=== PATIENT | male | born 1970 | race Caucasian/White ===

== ENCOUNTER 2020-12-12 11:57 | Emergency (ER) | payer OTHER ==
--- NOTE | 2020-12-12 12:36 | EDM.PDOC ---
ED HPI GENERAL MEDICAL PROBLEM - General Chief Complaint: Chest Pain Stated Complaint: SOB CHEST PAIN Time Seen by Provider: 12/12/20 12:15 Source of Information: Reports: Patient History Limitations: Reports: No Limitations - History of Present Illness INITIAL COMMENTS - FREE TEXT/NARRATIVE: 50-year-old male, who admits to being very sedentary over the past few months has noticed for the past 3 weeks increased shortness of breath with activity. No chest pain. The last 2 days he has noticed a deep pain in his left shoulder and some slight tingling in his hands and has become very anxious about it, called his primary provider at home and he recommended he come into the emergency room. He had no significant symptoms on arrival. An EKG done shows normal sinus rhythm. Denies any cough, abdominal pain, nausea or vomiting, diaphoresis, or peripheral edema. No family history of heart disease or previous heart problems or tests. He is very anxious. Onset: Gradual Duration: Week(s): (3 weeks of symptoms) Location: Reports: Chest (Slight chest pressure intermittent) Worsens with: Reports: Other (Shortness of breath seems to be worse with activity) Associated Symptoms: Reports: Chest Pain, Malaise, Shortness of Breath. Denies: Diaphoresis, Fever/Chills, Nausea/Vomiting, Weakness Chest Pain Score (Numeric/FACES): 2 - Related Data Allergies Allergy/AdvReac Type Severity Reaction Status Date / Time No Known Allergies Allergy Verified 12/12/20 12:12 Home Meds: Home Meds Sertraline [Zoloft] 100 mg PO DAILY 12/12/20 [History] Past Medical History HEENT History: Reports: None Cardiovascular History: Reports: None Respiratory History: Reports: None Gastrointestinal History: Reports: None Genitourinary History: Reports: None Musculoskeletal History: Reports: None Neurological History: Reports: None Psychiatric History: Reports: Depression, OCD, Suicidal Ideation Endocrine/Metabolic History: Reports: None Hematologic History: Reports: None Immunologic History: Reports: None Oncologic (Cancer) History: Reports: None Dermatologic History: Reports: Other (See Below) Other Dermatologic History: rash - Infectious Disease History Infectious Disease History: Reports: Chicken Pox - Past Surgical History HEENT Surgical History: Reports: None Cardiovascular Surgical History: Reports: None Social & Family History - Tobacco Use Tobacco Use Status *Q: Never Tobacco User - Caffeine Use Caffeine Use: Reports: Soda - Recreational Drug Use Recreational Drug Use: Yes Recreational Drug Type: Reports: Marijuana/Hashish Recreational Drug Use Frequency: Socially ED ROS GENERAL - Review of Systems Review Of Systems: See Below Constitutional: Reports: Malaise. Denies: Fever, Chills HEENT: Reports: No Symptoms Respiratory: Reports: Shortness of Breath Cardiovascular: Reports: Chest Pain (Mild intermittent pressure). Denies: Palpitations GI/Abdominal: Reports: No Symptoms : Reports: No Symptoms Musculoskeletal: Reports: No Symptoms Skin: Reports: No Symptoms Neurological: Reports: Paresthesia (Slight tingling of both hands is his only symptom in the emergency room) ED EXAM, GENERAL - Physical Exam Exam: See Below Exam Limited By: No Limitations General Appearance: Alert, Anxious Eye Exam: Bilateral Eye: Normal Inspection Head: Atraumatic Neck: Supple, Non-Tender Respiratory/Chest: Lungs Clear Cardiovascular: Regular Rate, Rhythm. No: Tachycardia, Extra Beats GI/Abdominal: Normal Bowel Sounds, Soft, Non-Tender Extremities: Normal Inspection. No: Pedal Edema Neurological: Alert, Oriented, No Motor/Sensory Deficits Psychiatric: Anxious #1 Interpretation EKG Date: 12/12/20 Time: 12:05 Rhythm: NSR Course - Vital Signs Last Recorded V/S: Last Vital Signs Temp 207.7 F H 12/12/20 12:09 Pulse 63 12/12/20 13:05 Resp 16 12/12/20 13:05 BP 124/91 H 12/12/20 13:05 Pulse Ox 96 12/12/20 13:05 - Orders/Labs/Meds Orders: Active Orders 24 hr Category Date Time Status Chest 2V [CR] Routine Exams 12/12/20 12:32 Taken EKG 12 Lead [EK] Routine Ther 12/12/20 12:32 Ordered Labs: Laboratory Tests 12/12/20 12/12/20 Range/Units 12:40 12:40 WBC 5.0 (4.5-11.0) K/uL RBC 5.29 (4.30-5.90) M/uL Hgb 15.1 H (12.0-15.0) g/dL Hct 44.3 (40.0-54.0) % MCV 84 (80-98) fL MCH 29 (27-31) pg MCHC 34 (32-36) % Plt Count 201 (150-400) K/uL Neut % (Auto) 52.9 (36-66) % Lymph % (Auto) 33.7 (24-44) % [place] % (Auto) 9.6 H (2-6) % Eos % (Auto) 3.2 (2-4) % Baso % (Auto) 0.6 (0-1) % Sodium 144 (140-148) mmol/L Potassium 4.0 (3.6-5.2) mmol/L Chloride 106 (100-108) mmol/L Carbon Dioxide 26 (21-32) mmol/L Anion Gap 12.4 (5.0-14.0) mmol/L BUN 19 H (7-18) mg/dL Creatinine 1.4 H (0.8-1.3) mg/dL Est Cr Clr Drug Dosing 67.23 mL/min Estimated GFR (MDRD) 54 L (>60) Glucose 97 (74-106) mg/dL Calcium 8.5 (8.5-10.1) mg/dL Total Bilirubin 0.4 (0.2-1.0) mg/dL AST 16 (15-37) U/L ALT 30 (12-78) U/L Alkaline Phosphatase 50 (46-116) U/L Troponin I < 0.017 (0.000-0.056) ng/mL Total Protein 6.4 (6.4-8.2) g/dL Albumin 3.4 (3.4-5.0) g/dL Globulin 3.0 (2.3-3.5) g/dL Albumin/Globulin Ratio 1.1 L (1.2-2.2) - Re-Assessments/Exams Free Text/Narrative Re-Assessment/Exam: 12/12/20 12:36 EKG done on arrival showed normal sinus rhythm, patient remained very anxious. Vital signs are excellent, O2 saturation 98% and blood pressure normal. CBC CMP and troponin were obtained as well as a two-view chest x-ray. 12/12/20 13:16 Patient had no further symptoms while in the emergency room, troponin is 0 and all labs were normal except for mild elevation of creatinine and BUN. Encourage the patient to stay hydrated, increase activity as tolerated and set up a stre ss test in the near future if not improving. Departure - Departure Time of Disposition: 13:29 Disposition: Home, Self-Care 01 Clinical Impression: Exertional dyspnea, Dehydration, mild - Discharge Information Instructions: Shortness of Breath, Adult, [id number] Referrals: PCP,None [Primary Care Provider] - Forms: ED Department Discharge Care Plan Goals: Increase activity as tolerated, return for a stress test if not improving satisfactorily. Return anytime if worsening or concerns like more chest pain with activity. If your primary provider advises a stress test, this can be arranged through the clinic. Sepsis Event Note (ED) - Evaluation Sepsis Screening Result: No Definite Risk - Focused Exam Vital Signs: Vital Signs Temp Pulse Resp BP Pulse Ox 12/12/20 13:05 63 16 124/91 H 96 12/12/20 12:55 77 18 121/85 96 12/12/20 12:35 74 14 117/75 95 12/12/20 12:09 207.7 F H 83 18 128/82 98 - My Orders Last 24 Hours: My Active Orders 12/12/20 12:32 Chest 2V [CR] Routine EKG 12 Lead [EK] Routine - Assessment/Plan Last 24 Hours: My Active Orders 12/12/20 12:32 Chest 2V [CR] Routine EKG 12 Lead [EK] Routine
--- NOTE | 2020-12-12 14:33 | CR ---
CHEST: 2 view CLINICAL HISTORY:Dyspnea COMPARISON:None FINDINGS: The heart size, pulmonary vascularity and hilar structures are normal. There is some patchy density in the right infrahilar region. This may represent minimal infiltrate or patchy atelectasis Impression: Patchy right infrahilar density may represent some airspace disease. Pneumonic infiltrate not excluded
== END 2020-12-12 13:29 | disposition home or self-care (01) ==
LOC: JP.ED 11:57
DX: R06.02 Shortness of breath (principal); E86.0 Dehydration
CPT/HCPCS: 36415; 71046; 71046-26; 80053; 84484; 85025; 93005; 99285-25